=== PATIENT | male | born 1985 | race Hispanic/Latino ===

== ENCOUNTER 2020-04-02 09:07 | Emergency (ER) | payer OTHER | END 2020-04-02 09:48 | disposition home or self-care (01) | LOC: EDH 09:07 → EDBD 09:07 → EDH 09:48 | DX: G51.0 Bell's palsy (principal); G43.909 Migraine, unspecified, not intractable, without status migrainosus; Z87.891 Personal history of nicotine dependence ==

== ENCOUNTER 2023-05-12 20:23 | Emergency (ER) | payer OTHER ==
[~2023-05-12] VITALS: Ht 175.3 cm; Wt 110.7 kg
[2023-05-12] MEDS ORDERED: DiphenhydrAMINE HCL 50 MG/ML VIAL IV ONE (23:00)
[2023-05-12] MEDS ORDERED: ONDANSETRON 4MG INJ IVP ONE (23:00)
[2023-05-12] MEDS ORDERED: KETOROLAC 30MG VIAL (30MG/ML) IVP ONE (23:00)
[2023-05-12] MEDS ORDERED: 0.9%NACL 1000ML 1,000 ML IV ONE (23:00)
[2023-05-13] MEDS ORDERED: IBUP-2077 PO (00:26)
[2023-05-13] MEDS ORDERED: ONDA4TAB10 PO (00:26)
[2023-05-13] MEDS ORDERED: DIPHENHYDRAMINE HCL 25 MG CAPSULE ONE (01:12)
[2023-05-13] MEDS ORDERED: ONDANSETRON ODT 4MG TAB ONE (01:13)
[2023-05-13 01:24] VITALS: BP 138/74; PULSE 88; RESP 18; O2SAT 99
== END 2023-05-13 01:31 | disposition home or self-care (01) ==
LOC: EDH 20:23
DX: G43.909 Migraine, unspecified, not intractable, without status migrainosus (principal); Z79.899 Other long term (current) drug therapy; Z90.89 Acquired absence of other organs
CPT/HCPCS: 99284; 70450; Q0163; J1885